=== PATIENT | female | born 1965 | race Caucasian/White ===

== ENCOUNTER 2019-04-11 07:12 | Emergency (ER) | payer BC ==
[2019-04-11 07:21] VITALS: BP 117/82
[2019-04-11] MEDS ORDERED: Ondansetron 4 MG Tab.DIS PO ONE (08:01)
--- NOTE | 2019-04-11 08:03 | EDM.PDOC ---
ED HPI GENERAL MEDICAL PROBLEM - General Chief Complaint: Neurological Problem Stated Complaint: DIZZY,VOMITING,UNABLE TO WALK Time Seen by Provider: 04/11/19 07:23 Source of Information: Reports: Patient, Family (), RN Notes Reviewed History Limitations: Reports: No Limitations - History of Present Illness INITIAL COMMENTS - FREE TEXT/NARRATIVE: The patient states that she feels like her right ear is plugged. She reports having a muffled sound, and feels a pressure-like sensation, on off for the past 2 years. She also reports tinnitus in her right ear for the past 2 years, which became worse yesterday. She states that she had previously seen an ENT, and an evaluation was negative. She reports that Mnire's disease have been discussed, but apparently the patient does not have Mnire's disease. The patient now presents to the ED stating that she woke up at 5:00 this morning , and when she got up, she found herself falling to the right due to a sensation that the room was spinning. She reports that the vertigo is positional , and that it essentially resolves if she remains still, but is induced when she is upright. She has nausea when she is. Seen the vertigo, but it quiets down when she remains still, and she has not yet vomited. She reports having both photophobia and phonophobia, although no headache. She also reports some tingling in her fingers on and off for the past 2 years. No recent illness, such as fever, chills, chest pain, palpitations, cough, dyspnea, constipation, diarrhea, abdominal pain, or urinary symptoms. Review of prior medical records finds that the patient was seen in this ED with very similar symptoms on 04/08/2015. The patient states that she does not remember that visit, although the medical record indicates that she subsequently underwent a outpatient MRI of the brain on 04/14/2015, that the patient does recall. The MRI demonstrated right mastoid sinusitis, unchanged from 10/09/2012, but was otherwise normal. The patient's PCP is NUVIA Cross. - Related Data Allergies Allergy/AdvReac Type Severity Reaction Status Date / Time amitriptyline Allergy Dizziness Verified 04/11/19 07:22 aspirin Allergy Difficulty Verified 04/11/19 07:22 Breathing bupropion Allergy Rash Verified 04/11/19 07:22 cephalexin Allergy Rash Verified 04/11/19 07:22 tetracycline Allergy Rash Verified 04/11/19 07:22 Home Meds: Home Meds Meclizine [Antivert] 1 tab PO Q6H PRN #30 tab 04/11/19 [Rx] Ondansetron [Zofran ODT] 1 tab PO Q8H PRN #10 tab.dis 04/11/19 [Rx] Past Medical History HEENT History: Reports: Impaired Vision Musculoskeletal History: Reports: Arthritis Dermatologic History: Reports: Eczema - Infectious Disease History Infectious Disease History: Reports: Chicken Pox - Past Surgical History HEENT Surgical History: Reports: Adenoidectomy, Naso-Sinus Surgery (x 2), Oral Surgery (wisdom teeth extraction), Tonsillectomy Female Surgical History: Reports: Endometrial Ablation, Hysterectomy (partial ) Social & Family History - Family History Family Medical History: Noncontributory - Tobacco Use Smoking Status *Q: Never Smoker Second Hand Smoke Exposure: No - Caffeine Use Caffeine Use: Reports: Coffee - Alcohol Use Alcohol Use History: Yes Alcohol Use Frequency: Socially - Recreational Drug Use Recreational Drug Use: Yes Drug Use in Last 12 Months: No Recreational Drug Type: Reports: Marijuana/Hashish (smoked in High School) - Living Situation & Occupation Living situation: Reports: , with Spouse, with Family (2 kids) 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 ED EXAM, DIZZINESS - Physical Exam Exam: See Below Exam Limited By: No Limitations General Appearance: Alert, WD/WN, Mild Distress (Nausea, with fear of vomiting) Eye Exam: Bilateral Eye: EOMI, Normal Inspection Nystagmus: worsens with head to L (fast component to the right and counter- clockwise), reproducible, short duration. No: worsens with head to R (minimal) Ears: Normal External Exam, Normal Canal, Hearing Grossly Normal, Other ( Possible scarring to the right tympanic membrane. Possible clear fluid behind the tympanic membrane.) Nose: Normal Inspection, Normal Mucosa, No Blood Throat/Mouth: Normal Inspection, Normal Lips, Normal Teeth, Normal Gums, Normal Oropharynx, Normal Voice, No Airway Compromise Head Exam: Atraumatic, Normocephalic Vertigo: worsens with head to L (with nausea), reproducible, short duration Neck: Normal Inspection, Supple, Non-Tender, Full Range of Motion. No: Lymphadenopathy (L), Lymphadenopathy (R) Respiratory/Chest: No Respiratory Distress, Lungs Clear, Normal Breath Sounds, No Accessory Muscle Use Cardiovascular: Normal Peripheral Pulses, Regular Rate, Rhythm, No Edema, No Gallop, No JVD, No Murmur, No Rub GI/Abdominal: Normal Bowel Sounds, Soft, Non-Tender, No Organomegaly, No Distention, No Abnormal Bruit, No Mass (Female) Exam: Deferred Rectal (Female) Exam: Deferred Neurological: Alert, Normal Dorsiflexion, CN II-XII Intact, Normal Plantar Flexion, No Motor/Sensory Deficits, Oriented x 3 Back Exam: Normal Inspection, Full Range of Motion, NT Extremities: Normal Inspection, Normal Range of Motion, No Pedal Edema, Normal Capillary Refill Psychiatric: Normal Affect Skin Exam: Warm, Dry, Intact, Normal Color, No Rash Course - Vital Signs Last Recorded V/S: Last Vital Signs Temp 35.8 C 04/11/19 07:17 Pulse 83 04/11/19 07:17 Resp 14 04/11/19 07:17 BP 117/82 04/11/19 07:17 Pulse Ox 99 04/11/19 07:17 - Orders/Labs/Meds Meds: Medications Discontinued Medications Generic Name Dose Route Start Last Admin Trade Name Graeme PRN Reason Stop Dose Admin Meclizine HCl 25 mg 04/11/19 08:00 04/11/19 08:06 Antivert PO 04/11/19 08:01 25 mg ONETIME STA Administration Ondansetron HCl 4 mg 04/11/19 08:01 04/11/19 08:06 Zofran Odt PO 04/11/19 08:02 4 mg ONETIME ONE Administration - Re-Assessments/Exams Free Text/Narrative Re-Assessment/Exam: 04/11/19 07:58 By both history and physical examination, the patient is suffering from BPPV, and because the fast component of her nystagmus is to the right, this would indicate that the affected semicircular canal is on the left. Because of her report of right ear pressure, muffled sound, and tinnitus, a diagnosis of Mnire's is raised, however, that should not cause her to have the induced nystagmus, vertigo, and nausea as produced on the Jaylen-Hallpike maneuver. Because the patient's vertigo is inducible with change in head position and essentially resolves when she remains still, that rules out a central/ cerebellar etiology, therefore an imaging study of the head is not indicated at this time. For today's purposes, the patient will receive both meclizine and Zofran ODT, and I will prescribe additional. I will refer her to ENT for definitive diagnosis and treatment. Departure - Departure Time of Disposition: 08:03 Disposition: Home, Self-Care 01 Condition: Good Clinical Impression: BPPV (benign paroxysmal positional vertigo) - Discharge Information *PRESCRIPTION DRUG MONITORING PROGRAM REVIEWED*: Not Applicable *COPY OF PRESCRIPTION DRUG MONITORING REPORT IN PATIENT MARY: Not Applicable Prescriptions: Meclizine [Antivert] 1 tab PO Q6H PRN #30 tab PRN Reason: Dizziness Ondansetron [Zofran ODT] 1 tab PO Q8H PRN #10 tab.dis PRN Reason: Nausea/Vomiting Instructions: Vertigo, [id number] Referrals: Trinity Llamas PA-C [Primary Care Provider] - Fausto Clifford MD [Ordering Only Provider] - Forms: ED Department Discharge Additional Instructions: You were seen in the emergency room for vertigo - the sensation that the room is spinning - whenever you move your head, associated with nausea. Based on your history and physical examination, you are most likely suffering from benign paroxysmal positional vertigo (BPPV), a condition caused by the blockage of a semicircular canal in one of your inner ears. In your case, it is most likely on the left. You have been started on the anti-vertigo medicine meclizine (Antivert), and the anti-nausea medicine Zofran. Prescriptions for meclizine and Zofran have been sent to the [facility]. Take one tablet of meclizine up to every 6 hours, as needed for vertigo. Meclizine will likely make you sleepy. Because of the meclizine, and because of the vertigo itself, you should not drive a vehicle. Dissolve one tablet of Zofran on your tongue up to every 8 hours, as needed for nausea/vomiting. Follow-up with the ENT Dr. Fausto Clifford in [place] at the next available appointment, for definitive diagnosis and treatment If any other problems, please do not hesitate to return to the ER.
== END 2019-04-11 08:25 | disposition home or self-care (01) ==
LOC: JD.ED 07:12
DX: H81.10 Benign paroxysmal vertigo, unspecified ear (principal); Z88.6 Allergy status to analgesic agent; Z88.1 Allergy status to other antibiotic agents; Z88.8 Allergy status to other drugs, medicaments and biological substances
CPT/HCPCS: 99283; A9270

== ENCOUNTER 2021-08-13 09:42 | Emergency (ER) | payer BC ==
--- NOTE | 2021-08-13 09:52 | EDM.PDOC ---
ED HPI GENERAL MEDICAL PROBLEM - General Chief Complaint: Respiratory Problem Stated Complaint: COVID SYMPTOMS Time Seen by Provider: 08/13/21 09:52 Source of Information: Reports: Patient History Limitations: Reports: No Limitations - History of Present Illness INITIAL COMMENTS - FREE TEXT/NARRATIVE: 55-year-old female presents to the ED for COVID-19 symptoms. Her is positive for COVID-19. They were both exposed to granddaughters last weekend and both of them were coughing and I do suspect their contact source. Patient's mother has already had COVID-19. She is unvaccinated. She started to feel unwell in the evening of August 09. Pressure in her chest. Subsequently has developed mild symptoms of COVID-19 illness with increased postnasal drip minimal sore throat retention of taste and smell. Paroxysmal cough of white sputum. Minimal fever chills no severe body aches. No diarrhea no vomiting. Patient has a history of chronic allergic rhinitis. She states minimal headache at this time has been taking Tylenol as needed patient has minimal risk factors with BMI of 25.7. Her O2 sats are 97 to 99% on room air. She is unvaccinated and a never smoker. Onset: Gradual Onset Date: 08/09/21 (First felt a little pressure heaviness in her chest on the evening of SundayAugust 09.) Duration: Day(s):, Getting Worse Location: Reports: Head (Minimal sore throat minimal headache), Face, Chest ([place] is mild productive cough occasional yellow sputum in the morning but mostly white.), Generalized, Other (Mild loss of appetite. No diarrhea or vomiting) Quality: Reports: Ache (Mild generalized body ache) Severity: Mild Improves with: Reports: Medication Worsens with: Reports: Movement Context: Reports: Sick Contact (Exposed to granddaughters last who were coughing. Both her and herself have developed COVID-19 symptoms his rapid was positive in the clinic. Hers was negative.). Denies: Activity, Exercise, Lifting Associated Symptoms: Reports: Chest Pain, Cough (Central chest discomfort from coughing so much.), cough w sputum ( Paroxysmal cough), Fever/Chills, Headaches (Mild), Loss of Appetite (Mild), Malaise (Mild), Shortness of Breath, Weakness (Mild). Denies: Confusion, Diaphoresis ( primarily white sputum some yellowness to the sputum in the mornings), Nausea/Vomiting, Rash, Seizure, Syncope Treatments BARREL RACER: Reports: Acetaminophen ( mild generalized weakness) - Related Data Allergies Allergy/AdvReac Type Severity Reaction Status Date / Time amitriptyline Allergy Dizziness Verified 08/13/21 10:01 aspirin Allergy Difficulty Verified 08/13/21 10:01 Breathing bupropion Allergy Rash Verified 08/13/21 10:01 cephalexin Allergy Rash Verified 08/13/21 10:01 tetracycline Allergy Rash Verified 08/13/21 10:01 Home Meds: Home Meds Doxycycline [Vibra-Tabs] 100 mg PO Q12HR #20 tab 08/13/21 [Rx] Hydrocodone/Chlorphen P-Stirex [Hydrocodone-Chlorphen ER Susp] 5 ml PO Q12H PRN #60 ml 08/13/21 [Rx] busPIRone [Buspar] 10 mg PO DAILY 08/13/21 [History] Past Medical History HEENT History: Reports: Impaired Vision Other Cardiovascular History: vertigo Respiratory History: Reports: Asthma Other TESTING AND REGULATING CHIEF History: histerectomy Musculoskeletal History: Reports: Arthritis Neurological History: Reports: Migraines, Vertigo Dermatologic History: Reports: Eczema - Infectious Disease History Infectious Disease History: Reports: Chicken Pox - Past Surgical History HEENT Surgical History: Reports: Adenoidectomy, Naso-Sinus Surgery (x 2), Oral Surgery (wisdom teeth extraction), Tonsillectomy Female Surgical History: Reports: Endometrial Ablation, Hysterectomy (partial) Social & Family History - Family History Family Medical History: No Pertinent Family History - Caffeine Use Caffeine Use: Reports: Coffee - Living Situation & Occupation Living situation: Reports: , with Spouse, with Family (2 kids) 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 Denies: Shortness of Breath, Wheezing, Pleuritic Chest Pain, Hemoptysis (Paroxysmal cough primarily of white sputum) Cardiovascular: Reports: Chest Pain, Blood Pressure Problem (Central chest discomfort from coughing.), Lightheadedness. Denies: Claudication, Dyspnea on Exertion, Edema, Orthopnea, Palpitations Endocrine: Reports: Fatigue GI/Abdominal: Reports: Decreased Appetite. Denies: Diarrhea, Nausea, Vomiting : Reports: No Symptoms Musculoskeletal: Reports: Muscle Pain Skin: Reports: No Symptoms (Mild generalized myalgia) Neurological: Reports: Dizziness, Headache (Mild), Weakness. Denies: Confusion, Numbness, Paresthesia, Pre-Existing Deficit, Syncope, Tingling ( mild), Trouble Speaking, Difficulty Walking (Mild generalized weakness) Psychiatric: Reports: Anxiety (On BuSpar) Hematologic/Lymphatic: Reports: No Symptoms Immunologic: Reports: No Symptoms ED EXAM, GENERAL - Physical Exam Exam: See Below Exam Limited By: No Limitations General Appearance: Alert, WD/WN, No Apparent Distress, Other (Temperature is 36.1. She does not feel warm to palpation heart rate 100 and sinus respiratory is 15 with O2 sats of 97% room air. BP 1 5184) Eye Exam: Bilateral Eye: Normal Inspection, PERRL (No blepharal pallor or scleral icterus) Ears: Normal TMs Throat/Mouth: Normal Inspection, Normal Lips, Normal Teeth, Normal Oropharynx, Other (Tongue is moist) Head: Atraumatic, Normocephalic Neck: Normal Inspection, Supple, Non-Tender, Full Range of Motion. No: Carotid Bruit, Lymphadenopathy (L), Lymphadenopathy (R), Thyromegaly Respiratory/Chest: No Respiratory Distress, Lungs Clear, Normal Breath Sounds, No Accessory Muscle Use, Other (Does have a paroxysmal cough) Cardiovascular: Normal Peripheral Pulses, Regular Rate, Rhythm, No Edema, No Gallop, No Murmur, No Rub Peripheral Pulses: 3+: Carotid (L), Carotid (R), Posterior Tibial (L), Posterior Tibial (R), Dorsalis Pedis (L), Dorsalis Pedis (R) GI/Abdominal: Normal Bowel Sounds, Soft, Non-Tender, No Organomegaly, No Distention Back Exam: Normal Inspection, Full Range of Motion. No: CVA Tenderness (L), CVA Tenderness (R) Extremities: Normal Inspection, Normal Range of Motion, Non-Tender, No Pedal Edema Neurological: Alert, Oriented, CN II-XII Intact, Normal Cognition, Normal Gait Psychiatric: Normal Affect, Normal Mood Skin Exam: Warm, Dry, Intact, Normal Color, No Rash #1 Interpretation EKG Date: 08/13/21 Time: 10:17 Rhythm: NSR Rate (Beats/Min): 96 Ruby: Normal P-Wave: Enlarged QRS: Other (Consider left atrial hypertrophy decreased voltage precordial leads) ST-T: Other (Nonspecific T wave inversion leads V1 to V3) QT: Normal EKG Interpretation Comments: Borderline ECG Course - Vital Signs Last Recorded V/S: Last Vital Signs Temp 36.1 C 08/13/21 09:59 Pulse 100 08/13/21 09:59 Resp 15 08/13/21 09:59 BP 151/84 H 08/13/21 09:59 Pulse Ox 97 08/13/21 09:59 - Orders/Labs/Meds Orders: Active Orders 24 hr Category Date Time Status Chest 1V Frontal [CR] Stat Exams 08/13/21 09:50 Taken Dextrose 5%-0.9% NaCl [Dextrose 5%-Normal Saline] 1,000 Med 08/13/21 10:00 Active ml IV ASDIRECTED Medication Orders Dextrose/Sodium Chloride (Dextrose 5%-Normal Saline) 1,000 mls @ 125 mls/hr IV ASDIRECTED BANDAR Last Admin: 08/13/21 10:29 Dose: 125 mls/hr Documented by: BRANDT Labs: Laboratory Tests 08/13/21 08/13/21 08/13/21 Range/Units 09:07 10:20 10:20 WBC 4.05 (3.98-10.04) K/mm3 RBC 5.13 (3.98-5.22) M/mm3 Hgb 15.1 (11.2-15.7) gm/dl Hct 44.9 (34.1-44.9) % MCV 87.5 (79.4-94.8) fl MCH 29.4 (25.6-32.2) pg MCHC 33.6 (32.2-35.5) g/dl RDW Std Deviation 45.4 (36.4-46.3) fL Plt Count 198 (182-369) K/mm3 MPV 11.4 (9.4-12.3) fl Neut % (Auto) 67.0 (34.0-71.1) % Lymph % (Auto) 13.8 L (19.3-51.7) % [place] % (Auto) 15.8 H (4.7-12.5) % Eos % (Auto) 2.2 (0.7-5.8) Baso % (Auto) 1.0 (0.1-1.2) % Neut # (Auto) 2.71 (1.56-6.13) K/mm3 Lymph # (Auto) 0.56 L (1.18-3.74) K/mm3 [place] # (Auto) 0.64 H (0.24-0.36) K/mm3 Eos # (Auto) 0.09 (0.04-0.36) K/mm3 Baso # (Auto) 0.04 (0.01-0.08) K/mm3 PT (9.7-12.0) SECONDS INR APTT (21.7-31.4) SECONDS D-Dimer, Quantitative (0.19-0.50) mg/L Sodium 138 (136-145) mEq/L Potassium 4.1 (3.5-5.1) mEq/L Chloride 104 (98-107) mEq/L Carbon Dioxide 26 (21-32) mEq/L Anion Gap 12.1 (5-15) BUN 17 (7-18) mg/dL Creatinine 0.7 (0.55-1.02) mg/dL Est Cr Clr Drug Dosing 78.41 mL/min Estimated GFR (MDRD) > 60 (>60) mL/min BUN/Creatinine Ratio 24.3 H (14-18) Glucose 118 H (70-99) mg/dL Calcium 9.3 (8.5-10.1) mg/dL Magnesium 1.9 (1.8-2.4) mg/dL Total Bilirubin 0.4 (0.2-1.0) mg/dL AST 16 (15-37) U/L ALT 24 (14-59) U/L Alkaline Phosphatase 88 (46-116) U/L Lactate Dehydrogenase 178 (81-234) U/L Troponin I < 0.017 (0.00-0.056) ng/mL C-Reactive Protein 0.4 (<1.0) mg/dL NT-Pro-B Natriuret Pep (0-125) pg/mL Total Protein 7.4 (6.4-8.2) g/dl Albumin 3.8 (3.4-5.0) g/dl Globulin 3.6 gm/dL Albumin/Globulin Ratio 1.1 (1-2) SARS-CoV-2 RNA (RUDDY) Positive H (NEGATIVE) 08/13/21 08/13/21 Range/Units 10:20 10:50 WBC (3.98-10.04) K/mm3 RBC (3.98-5.22) M/mm3 Hgb (11.2-15.7) gm/dl Hct (34.1-44.9) % MCV (79.4-94.8) fl MCH (25.6-32.2) pg MCHC (32.2-35.5) g/dl RDW Std Deviation (36.4-46.3) fL Plt Count (182-369) K/mm3 MPV (9.4-12.3) fl Neut % (Auto) (34.0-71.1) % Lymph % (Auto) (19.3-51.7) % [place] % (Auto) (4.7-12.5) % Eos % (Auto) (0.7-5.8) Baso % (Auto) (0.1-1.2) % Neut # (Auto) (1.56-6.13) K/mm3 Lymph # (Auto) (1.18-3.74) K/mm3 [place] # (Auto) (0.24-0.36) K/mm3 Eos # (Auto) (0.04-0.36) K/mm3 Baso # (Auto) (0.01-0.08) K/mm3 PT 10.3 (9.7-12.0) SECONDS INR 0.93 APTT 26.1 (21.7-31.4) SECONDS D-Dimer, Quantitative 0.51 H (0.19-0.50) mg/L Sodium (136-145) mEq/L Potassium (3.5-5.1) mEq/L Chloride (98-107) mEq/L Carbon Dioxide (21-32) mEq/L Anion Gap (5-15) BUN (7-18) mg/dL Creatinine (0.55-1.02) mg/dL Est Cr Clr Drug Dosing mL/min Estimated GFR (MDRD) (>60) mL/min BUN/Creatinine Ratio (14-18) Glucose (70-99) mg/dL Calcium (8.5-10.1) mg/dL Magnesium (1.8-2.4) mg/dL Total Bilirubin (0.2-1.0) mg/dL AST (15-37) U/L ALT (14-59) U/L Alkaline Phosphatase (46-116) U/L Lactate Dehydrogenase (81-234) U/L Troponin I (0.00-0.056) ng/mL C-Reactive Protein (<1.0) mg/dL NT-Pro-B Natriuret Pep 27 (0-125) pg/mL Total Protein (6.4-8.2) g/dl Albumin (3.4-5.0) g/dl Globulin gm/dL Albumin/Globulin Ratio (1-2) SARS-CoV-2 RNA (RUDDY) (NEGATIVE) Meds: Medications Generic Name Dose Route Start Last Admin Trade Name Freq PRN Reason Stop Dose Admin Dextrose/Sodium Chloride 1,000 mls @ 125 mls/hr 08/13/21 10:00 08/13/21 10:29 Dextrose 5%-Normal Saline IV 125 mls/hr ASDIRECTED BANDAR Administration - Radiology Interpretation Free Text/Narrative:: 55-year-old female reports to the ED with COVID-19 symptoms which appear to be quite mild at this time. Her is COVID-19 positive. She has increased paroxysmal productive cough and increased nasal drip minimal sore throat minimal headache appetite is mildly affected. Plan chest x-ray COVID-19 work-up. Saline lock at this time. - Re-Assessments/Exams Free Text/Narrative Re-Assessment/Exam: 08/13/21 10:59 chest x-ray suggest mild cardiomegaly. Increased vasculature to the right lower lobe no formal pneumonia identified. COVID-19 test did come back positive. 08/13/21 11:00 White count is 4.05 auto differential reveals 67% neutrophils. Hemoglobin is 15.1 with a hematocrit of 44.9. Platelet count is under 198,000. Sodium 138 with a potassium of 4.1. Chloride 104 with a bicarb of 26. Anion gap is 12.1. BUN is 17 with a creatinine of 0.7 GFR is greater than 60. BUN/creatinine ratio is elevated at 24.3 suggesting mild volume depletion glucose 118. Calcium 9.3. Magnesium 1.9. Liver function normal. LDH normal at 178 troponin I less than 0.017 C-reactive protein is 0.4 total protein 7.4 COVID-19 screen is positive. Departure - Departure Time of Disposition: 11:28 Disposition: Home, Self-Care 01 Condition: Fair Clinical Impression: COVID-19 - Discharge Information *PRESCRIPTION DRUG MONITORING PROGRAM REVIEWED*: Not Applicable *COPY OF PRESCRIPTION DRUG MONITORING REPORT IN PATIENT MARY: Not Applicable Prescriptions: Hydrocodone/Chlorphen P-Stirex [Hydrocodone-Chlorphen ER Susp] 5 ml PO Q12H PRN #60 ml PRN Reason: COVID-19 Doxycycline [Vibra-Tabs] 100 mg PO Q12HR #20 tab Instructions: COVID-19 Vaccine Information, COVID-19 Frequently Asked Questions, COVID-19: How to Protect Yourself and Others - [facility], COVID-19: Quarantine vs. Isolation - [facility] (09/30/2020) Referrals: Trinity Llamas PA-C [Primary Care Provider] - Forms: ED Department Discharge Additional Instructions: Evaluation in the emergency room today confirms clinical suspicion of COVID-19 illness. Your chest x-ray is normal without any signs of pneumonia. Your markers for inflammation are essentially normal. Therefore I would agree you have a very mild case of COVID-19 illness and at present are not a candidate for monoclonal antibody therapy. As per your request use of doxycycline 100 mg twice daily for 10 days in combination with cough syrup Tussionex 3-5 mils every 12 hours as necessary with little food in your stomach to help control cough during this illness. Of course you are considered to be quarantined or isolated for at least another week until Sunday, August 20. If you are considering COVID-[address] you have to wait a minimum of 12 weeks after having Covid before you are eligible. As we discussed illness worsens usually between day 8 and 11. Continue your pulse oximeter at home and if your oxygen level stays 88% or lower for 2 consecutive hours you would need to return to the emergency room. Sepsis Event Note (ED) - Focused Exam Vital Signs: Vital Signs Temp Pulse Resp BP Pulse Ox 08/13/21 09:59 36.1 C 100 15 151/84 H 97 - My Orders Last 24 Hours: My Active Orders 08/13/21 09:50 Chest 1V Frontal [CR] Stat 08/13/21 10:00 Dextrose 5%-0.9% NaCl [Dextrose 5%-Normal Saline] 1,000 ml IV ASDIRECTED - Assessment/Plan Last 24 Hours: My Active Orders 08/13/21 09:50 Chest 1V Frontal [CR] Stat 08/13/21 10:00 Dextrose 5%-0.9% NaCl [Dextrose 5%-Normal Saline] 1,000 ml IV ASDIRECTED
[2021-08-13 10:00] VITALS: BP 151/84; PULSE 100
[2021-08-13] MEDS ORDERED: Dextrose 5%-0.9% NaCl 1,000 ML IV SCH (10:00)
--- NOTE | 2021-08-14 07:43 | CR ---
Chest: Portable view of the chest was obtained. Comparison: Prior chest x-ray of 04/05/16. Heart size and mediastinum are stable from prior chest x-ray. Lungs are clear with no acute parenchymal change. No acute osseous abnormality is appreciated. Impression: 1. Nothing acute is seen on portable chest x-ray. Diagnostic code #1
== END 2021-08-13 11:51 | disposition home or self-care (01) ==
LOC: JD.ED 09:42
DX: U07.1 COVID-19 (principal); J45.909 Unspecified asthma, uncomplicated; Z88.1 Allergy status to other antibiotic agents; Z88.8 Allergy status to other drugs, medicaments and biological substances; Z79.899 Other long term (current) drug therapy
CPT/HCPCS: 36415; 71045; 80053; 83615; 83735; 83880; 84484; 85025; 85379; 85610; 85730; 86140; 87635; 93005; 99284; J7042; U0002